=== PATIENT | female | born 1960 | race Caucasian/White ===

== ENCOUNTER → 2024-07-28 | Outpatient (CLI) | payer BC, SELFPAY ==
[2024-07-28 10:43] LABS: Glucose Estimated Average 108 mg/dL (80-131); Hemoglobin A1C 5.4 % Hgb (4.8-6.0)
[2024-07-28 10:44] LABS: Basophils # (Auto) 0.1 Thou/mm3 (0.0-0.2); Basophils % (Auto) 2 % (0-2.5); Eosinophils # (Auto) 0.2 Thou/mm3 (0.0-0.5); Eosinophils % (Auto) 5 % (0-10); Hematocrit 40.2 % (36.0-46.0); Hemoglobin 12.9 g/dL (12.0-16.0); Immature Granulocytes % (Auto) 0 % (0-0); Immature Granulocytes Auto 0.01 Thou/mm3 (0.00-0.00); Lymphocytes # (Auto) 1.3 Thou/mm3 (1.0-4.8); Lymphocytes % (Auto) 32 % (10-50); Mean Corpuscular HGB Conc 32.1 g/dl (31.0-37.0); Mean Corpuscular Hemoglobin 29.1 pg (25.0-35.0); Mean Corpuscular Volume 91 fL (80-100); Monocytes # (Auto) 0.3 Thou/mm3 (0.0-0.8); Monocytes % (Auto) 8 % (0-12); Neutrophils # (Auto) 2.2 Thou/mm3 (1.8-7.7); Neutrophils % (Auto) 54 % (37-80); Nucleated Red Blood Cell % 0 /100 WBC (0); Platelet Count 227 Thou/mm3 (140-440); RDW Standard Deviation 44.6 fL (36.4-46.3); Red Blood Count 4.43 Miln/mm3 (4.00-5.20); White Blood Count 4.1 Thou/mm3 (3.6-11.0)
[2024-07-28 10:48] LABS: Alanine Aminotransferase 43 U/L (10-49); Albumin, Serum 4.1 gm/dL (3.4-4.8); Albumin/Globulin Ratio 2.4 (1.2-2.2); Alkaline Phosphatase 42 U/L (46-116); Anion Gap 1 (7-16); Aspartate Amino Transferase 55 U/L (0-34); BUN/Creatinine Ratio 22 Ratio (12-20); Bilirubin,Total 0.5 mg/dL (0.3-1.2); Blood Urea Nitrogen 22 mg/dL (9-23); Calcium 9.7 mg/dL (8.3-10.6); Calcium (Corrected) 9.7 mg/dL (8.5-10.1); Carbon Dioxide 29.6 mMol/L (20.0-31.0); Chloride 110 mMol/L (98-107); Cholesterol 204 mg/dL (132-200); Globulin 1.7 gm/dL (2.3-3.5); Glucose 91 mg/dL (74-106); HDL Cholesterol 69 mg/dL (40-60); LDL Cholesterol,Calculated 122 mg/dL (0-130); Osmolality,Calculated 284 (275-295); Potassium 3.8 mMol/L (3.4-5.1); Sodium 141 mMol/L (136-145); Thyroid Stimulating Hormone 1.58 uIU/mL (0.55-4.78); Total Protein 5.8 gm/dL (5.7-8.2); Triglycerides 66 mg/dL (30-150); eGFR > 60 See Note
[2024-07-28 11:04] LABS: Collection Type, Urine Clean Catch
[2024-07-28 11:35] LABS: Bilirubin,Urine Negative (Negative); Blood,Urine Negative (Negative); Clarity,Urine Clear (Clear/Hazy); Color,Urine Yellow (Lt Yel-Yel); Culture Indicated,Urine Not Indicated; Glucose, Urine Negative (Negative); Ketones,Urine Negative (Negative); Leukocyte Esterase,Urine Negative (Negative); Nitrite,Urine Negative (Negative); PH,Urine 6.5 (5.0-7.0); Protein,Urine Trace (Neg - Trace); RBC,Urine 3 /hpf (0-3); Specific Gravity,Urine 1.025 (1.001-1.035); Squamous Epithelial Cell,Urine 1 /hpf (0-5); Urobilinogen,Urine Negative mg/dL (0.0-1.0); WBC,Urine 1 /hpf (0-5)
== END | disposition home or self-care (01) ==
LOC: COPL 09:50
PROVIDERS: PCP Family Medicine; Referring Provider Nurse Practitioner Family; Visit Provider Nurse Practitioner Family
DX: Z00.00 Encounter for general adult medical examination without abnormal findings (principal); E78.5 Hyperlipidemia, unspecified; R73.03 Prediabetes
CPT/HCPCS: 36415; 80053; 80061; 81001; 83036; 84443; 85025

== ENCOUNTER 2024-08-23 08:50 | Day surgery (SDC) | payer BC, SELFPAY ==
[2024-08-20 13:34] VITALS: BMI 18.3
[2024-08-23] VITALS (16 sets, daily range): BP systolic 101–172; BP diastolic 70–106; PULSE 54–76; RESP 8–20; TEMP 36.1–36.4; O2SAT 95–100; BMI 19.1
[2024-08-23] MEDS: GENTAMICIN/NS 80 MG IVPB 80 MG in PRE-MIXED 1 BAG 50 MG IV (10:08)
[2024-08-23] MEDS: SODIUM CHLORIDE 0.9% 500 ML 500 ML 20 ML IV (10:50)
[2024-08-23] MEDS: BENZOCAINE 20% (Hurricaine) SPRAY 1 DOSE TOP (10:50)
[2024-08-23] MEDS: DiphenhydrAMINE INJ 50 MG/ML VIAL 25 MG IV (10:58)
[2024-08-23] MEDS: fentaNYL CIT INJ 50 mCg/ML AMP 2ML (ASD USE ONLY) IV (11:18)
[2024-08-23] MEDS: ONDANSETRON INJ 2 MG/ML INJ 2 ML 4 MG IV (11:18)
[2024-08-23] MEDS: MIDAZOLAM INJ 1 MG/ML VIAL 2 ML (ASD USE ONLY) 2 MG IV (11:20)
[2024-08-23] MEDS: MEPERIDINE INJ 25 MG/ML VIAL (ASD USE ONLY) 50 MG IV (11:20)
--- NOTE | 2024-08-23 12:58 | SUR.PHASEII ---
1205 Pt remains very drowsy. Will open eyes on commands, then drifts back to sleep. Amb remains soft. IV fluids cont. 1225 Pt more awake and alert. Denies pain or N/V. Does c/o really tired. Reassurance offered to pt. Abd remains soft. Annalee Po fluids. 1245 Pt assessment unchanged. No complaints, except tired . Pt amb with assist to BR. assisting with pt getting dressed. DC instructions given. Both state understanding. Pt meets dc criteria-to home.
== END 2024-08-23 12:45 | disposition home or self-care (01) ==
PROVIDERS: PCP Family Medicine; Referring Provider Specialist; Visit Provider Specialist
PROC: 0DBE8ZX Excision of Large Intestine, Via Natural or Artificial Opening Endoscopic, Diagnostic (ICD-10-PCS; CPT 45380; principal; 2024-08-23 09:15)
PROC: (CPT 43239; 2024-08-23 09:15)
DX: Z12.11 Encounter for screening for malignant neoplasm of colon (principal); K22.70 Barrett's esophagus without dysplasia; K64.9 Unspecified hemorrhoids; K31.89 Other diseases of stomach and duodenum; K29.51 Unspecified chronic gastritis with bleeding; K29.81 Duodenitis with bleeding; K20.91 Esophagitis, unspecified with bleeding; I10 Essential (primary) hypertension; Z79.899 Other long term (current) drug therapy; Q21.10 Atrial septal defect, unspecified
CPT/HCPCS: 45380; A4649; J1200; J1580; J2175; J2250; J2405; J3010; J7040; A9270

== ENCOUNTER → 2024-08-27 | Outpatient (CLI) | payer BC, SELFPAY ==
--- NOTE | 2024-08-27 13:00 | XR_ITS ---
Examination: Screening digital mammography, bilateral Computer aided detection 3-D breast Tomosynthesis, bilateral Date and time of exam: 08/27/2024, 12:55 PM Comparisons: 07/30/2023 Indications: Screening Technique: Nonmagnified MLO, CC views of the breasts to been obtained, reconstructed from 3-D Tomosynthesis images. R2 computer aided detection program utilized for evaluation of suspicious masses and/or abnormal calcifications. 3-D Tomosynthesis images obtained. Technologist: Findings: The breasts are heterogeneously dense, which may obscure small masses. No evidence of abnormal masses or suspicious calcifications. Impression: BI-RADS category 1: Negative findings (within normal) Recommend 1 year follow-up mammogram
== END | disposition home or self-care (01) ==
PROVIDERS: PCP Nurse Practitioner Family; Referring Provider Nurse Practitioner Family; Visit Provider Nurse Practitioner Family
DX: Z12.31 Encounter for screening mammogram for malignant neoplasm of breast (principal); R92.313 Mammographic fatty tissue density, bilateral breasts
CPT/HCPCS: 77063; 77067

== ENCOUNTER → 2025-04-06 | Outpatient (CLI) | payer BC, SELFPAY ==
--- NOTE | 2025-04-06 10:53 | XR_ITS ---
Examination: Bilateral AP knees standing single view TECHNIQUE: AP bilateral standing knees single view Date and time: April 06, 2025, 1123 hours INDICATIONS: Bilateral knee pain years. FINDINGS: Mild narrowing medial joint space right knee Moderate narrowing medial joint space left knee Mild osteoarthritis lateral joint space left knee No fractures IMPRESSION: Mild narrowing medial joint space right knee Moderate narrowing medial joint space left knee Mild osteoarthritis lateral joint space left knee
--- NOTE | 2025-04-06 10:53 | XR_ITS ---
Examination: Right hip AP, lateral, AP pelvis 3 views Technique: Hip AP lateral, AP pelvis, 3 views Exam date and time: April 06, 2025, 1123 hours INDICATION: Right hip pain several years. FINDINGS: Mild to moderate osteoarthritis right hip Mild osteoarthritis left hip No hip or pelvic fracture IMPRESSION: Mild to moderate osteoarthritis right hip Mild osteoarthritis left hip.
--- NOTE | 2025-04-06 10:53 | XR_ITS ---
Examination: Knee bilateral, 8 views Technique: Knee AP, lateral, oblique, axial each knee total 8 views Date and time of exam: April 06, 2025, 1123 hours INDICATIONS: Bilateral knee pain beginning several years ago. FINDINGS: Left knee mild to moderate tricompartment osteoarthritis, most severe medial and patellofemoral joints Mild right knee tricompartment osteoarthritis most severe patellofemoral joint No fractures No patellar dislocations IMPRESSION: Left knee mild to moderate tricompartment osteoarthritis Right knee mild tricompartment osteoarthritis
== END | disposition home or self-care (01) ==
LOC: CDIM 10:22
PROVIDERS: PCP Family Medicine; Referring Provider Nurse Practitioner Family; Visit Provider Nurse Practitioner Family
DX: M17.0 Bilateral primary osteoarthritis of knee (principal); M25.862 Other specified joint disorders, left knee; M25.861 Other specified joint disorders, right knee; M16.0 Bilateral primary osteoarthritis of hip
CPT/HCPCS: 73502; 73564; 73565